=== PATIENT | male | born 1965 | race African-American/Black ===

== ENCOUNTER 2018-10-14 11:50 | Inpatient (IN) | payer OTHER, SELFPAY ==
[2018-10-14] MEDS ORDERED: HYDROmorphone 0.5 MG/0.5 ML SYRINGE ONE (12:07)
[2018-10-14] MEDS ORDERED: Adacel (T-DAP) 0.5 ML SYRINGE ONE (12:07)
[2018-10-14] MEDS ORDERED: PROPOFOL 20 ML ONE (12:30)
--- NOTE | 2018-10-14 13:01 | RAD ---
EXAM: XR Ankle Rt 2 View PROVIDED CLINICAL HISTORY: Open dislocation post fall. COMPARISON: None FINDINGS: There is dislocation of the hindfoot. The calcaneus is dislocated with respect to the talus with medi al deviation and rotation of the calcaneus and foot. There is also dislocation involving the talonavicular joint. The ankle mortise is congruent. No obvious fracture is seen. There is subcutaneo us emphysema about the dislocation. IMPRESSION: Dislocation of the hindfoot as described above. No obvious fractures is appreciated on the provided i mages due to limited evaluation secondary to dislocation.
[2018-10-14] MEDS ORDERED: ePHEDrine 50 MG/ML VIAL ONE (13:14)
[2018-10-14] MEDS ORDERED: Succinylcholine Chloride 20 MG/ML 10 ml SYRINGE FS ONE (13:14)
[2018-10-14] MEDS ORDERED: PROPOFOL 200 MG/20 ML VIAL ONE (13:14)
[2018-10-14] MEDS ORDERED: Lidocaine 1% PF 5 ML VIAL ONE (13:14)
--- NOTE | 2018-10-14 13:30 | HP ---
ATTENDING SURGEON: Dr. Qureshi. CONSULTATIONS: Orthopedics, Dr. De Jesus. 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 The patient had immediate pain and deformity noted. He was brought to the emergency department by ground EMS, where he underwent evaluation and examination, and was noted to have an open right ankle fracture dislocation. The patient underwent conscious sedation and closed reduction in the emergency department by Dr. De Jesus, and is scheduled to go to the operating room for definitive treatment. The patient also received tetanus and 2 g of Ancef, and we were asked to admit the patient. The patient denied any loss of consciousness or syncopal-type symptoms. ALLERGIES: NONE. CURRENT MEDICATIONS: None. PAST MEDICAL HISTORY: None. PAST SURGICAL HISTORY: Right knee arthroscopy. SOCIAL HISTORY: The patient drinks 2 to 3 times per week. Denies drug or tobacco use. 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 REVIEW OF SYSTEMS: A 10-point review of systems is negative as otherwise stated. PHYSICAL EXAMINATION: VITAL SIGNS: Blood pressure 163/93, heart rate 73, respirations 18, oxygen saturation 99% on room air, and temperature is 98.1. GENERAL: The patient is resting comfortably in bed. He is awake, alert, and oriented x3. [place] Coma Scale is 15. HEENT: Normocephalic, atraumatic. Eyes, extraocular motion intact. PERRLA bilaterally. Ears are atraumatic without discharge. Nose is atraumatic without discharge. Oropharynx is clear. NECK: Nontender. Trachea is midline. No JVD. CHEST: Clear to auscultation with good inspiratory and expiratory effort. HEART: Regular rate and rhythm. ABDOMEN: Soft, flat, nontender with active bowel sounds. PELVIS: Stable. EXTREMITIES: Right lower extremity has an obvious open fracture dislocation, that is about to be reduced by Dr. De Jesus. Otherwise, the extremities are neurovascularly intact x4. BACK: Atraumatic and nontender. LABORATORY DATA: Labs are pending. RADIOGRAPHS: Views of the right ankle showed dislocation of the hindfoot with no appreciated fractures on the limited films due to the extreme rotation of the ankle joint itself. ASSESSMENT: 1. Status post fall from approximately 5 feet. 2. Open right ankle fracture dislocation. 3. Acute pain secondary to above. PLAN: Plan will be to undergo conscious sedation closed reduction and splinting. After the reduction, the patient is planned to go to CT to evaluate his foot and ankle. Then, hopefully to day stay in preparation for his surgery. Otherwise, he will go to the surgical floor. Postoperatively, we will do pain control, pulmonary toilet, gastritis and mechanical VTE prophylaxis in addition to his pain control. We will have Physical Therapy work with him as soon as feasible. The evaluation, examination, laboratory, and radiographic findings will be discussed with Dr. Qureshi, after this dictation. Job ID: [id number]
--- NOTE | 2018-10-14 13:45 | CT ---
EXAM: CT Lower Ext Rt WO Con PROVIDED CLINICAL HISTORY: Post reduction of dislocation of the hindfoot. COMPARISON: Views right ankle on 10/14/2018. FINDINGS: There is been interval reduction in the previously noted dislocation involving the hindfoot. No dislo cation is seen on this exam. There are several tiny fracture fragments related to fracture involving the medial aspect posterior process of the talus. There are also small fracture fragments a t the inferior and lateral aspect of the anterior process of the talus. These tiny fracture fragments are noted to arise from the talus.. There is a slightly avulsion fracture involving the base of the fifth metatarsal. No additional fracture is seen. There is no evidence of a dislocation on this examination. Extensive subcutaneous emphysema is seen about the hindfoot with evidence of laceration at the latera l aspect of the hindfoot. Subcutaneous edema is seen about the hindfoot. No obvious joint effusion is seen. IMPRESSION: 1. Interval reduction of previously noted dislocation about the hindfoot. 2. Avulsion fracture fragments adjacent to the anterior process as well as posterior process of the t alus. 3. Slightly avulsion fracture at the base of the fifth metatarsal. 4. Extensive subcutaneous emphysema with laceration lateral aspect of the hindfoot.
[2018-10-14 13:50] LABS: #Eosinphils 0.1 thou/uL (0.0-0.7); #Lymphocytes 1.9 thou/uL (1.20-3.40); #Monocytes 0.6 thou/uL (0.11-0.59); #Neutrophils 8.6 thou/uL (1.40-6.50); %Basophils 0.3 % (0.0-1.0); %Eosinophils 0.9 % (0.0-10.0); %Monocytes 5.4 % (0.0-10.0); %Neutrophils 76.4 % (42.0-75.0); Hemoglobin 14.7 g/dL (14.0-18.0); Mean Corpuscular HGB CONC 32.9 g/dL (32.0-36.0); Mean Corpuscular Hemoglobin 26.4 pg (27.0-31.0); Mean Corpuscular Volume 80.4 fL (78.0-98.0); Mean Platelet Volume 9.1 fL (7.4-10.4); Platelet Count 255 thou/uL (130-400); Red Blood Cell (RBC) Count 5.55 mill/uL (4.70-6.10); White Blood Cell (WBC) Count 11.2 thou/uL (4.8-10.8)
[2018-10-14 14:02] LABS: ALT (SGPT) 24 U/L (8-55); AST (SGOT) 23 U/L (5-34); Albumin 4.3 g/dL (3.5-5.0); Alkaline Phosphatase 71 U/L (40-150); Anion Gap 12 mmol/L (10-20); BUN (Urea Nitrogen) 10 mg/dL (8.4-25.7); Bilirubin, Total 0.8 mg/dL (0.2-1.2); Calc. Creatinine Clearance 0 mL/min (70-130); Calcium 9.3 mg/dL (7.8-10.44); Carbon Dioxide 24 mmol/L (22-29); Chloride 107 mmol/L (98-107); Estimated GFR-MDRD Greater than 90; Globulin 3.3 g/dL (2.4-3.5); Glucose 122 mg/dL (70-105); Potassium 3.7 mmol/L (3.5-5.1); Protein, Total 7.6 g/dL (6.0-8.3); Sodium 139 mmol/L (136-145)
[2018-10-14] MEDS ORDERED: Ketorolac Tromethamine 30 MG/ML VIAL ONE ×2 (14:19→22:47)
[2018-10-14] MEDS ORDERED: Fentanyl 100 MCG/2 ML VIAL ONE ×6 (14:19→22:52)
[2018-10-14] MEDS ORDERED: Famotidine/PF 20 mg/2ml Vial ONE ×3 (14:19→20:59)
[2018-10-14] MEDS ORDERED: Dextrose 50% Abboject 50 ML SYRINGE SLOW IVP PRN (22:39)
[2018-10-14] MEDS ORDERED: Cyclobenzaprine 10 MG TAB PO PRN (22:39)
[2018-10-14] MEDS ORDERED: Ondansetron ODT 4 MG TAB PO PRN (22:39)
[2018-10-14] MEDS ORDERED: Morphine 4 MG/ML VIAL SLOW IVP PRN (22:39)
[2018-10-14] MEDS ORDERED: Promethazine HCl 25 MG/ML VIAL IM PRN ×3 (22:39→22:49)
[2018-10-14] MEDS ORDERED: Ondansetron PF 4 MG/2 ML Vial IVP PRN (22:39)
[2018-10-14] MEDS ORDERED: Morphine 2 MG/ML SYRINGE SLOW IVP PRN (22:39)
[2018-10-14] MEDS ORDERED: Dextrose 5% in Water 1,000 ML IV PRN (22:39)
[2018-10-14] MEDS ORDERED: Famotidine 20 MG TAB PO SCH (22:45)
[2018-10-14] MEDS ORDERED: Ondansetron PF 4 MG/2 ML Vial ONE (22:47)
[2018-10-14] MEDS ORDERED: Ketorolac Tromethamine 30 MG/ML VIAL IVP PRN (22:48)
[2018-10-14] MEDS ORDERED: Ondansetron HCl/PF 4 MG/2 ML Vial IVP PRN (22:49)
[2018-10-14] MEDS ORDERED: Promethazine HCl 25 MG/ML VIAL SLOW IVP PRN (22:49)
--- NOTE | 2018-10-14 23:27 | CON ---
DATE OF CONSULTATION: 10/14/2018 CHIEF COMPLAINT: Right foot pain. 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 He was coming out of an attic when he fell onto his right foot sustaining an open injury to his ankle. The patient was called, had severe pain, on admission was called by the ER for closed reduction. PAST MEDICAL HISTORY: None. PAST SURGICAL HISTORY: Right knee arthroscopy and I and D of an abscess of his right face, not otherwise specified. ALLERGIES: NO KNOWN DRUG ALLERGIES. MEDICATIONS: None. SOCIAL HISTORY: Occasional alcohol. Works in [employer]. Denies illicit drug use or tobacco. REVIEW OF SYSTEMS: Noncontributory. PHYSICAL EXAMINATION: VITAL SIGNS: The patient's vitals blood pressure 179/107, pulse 68, respiratory rate 20, temperature of 98.1, and 100% on room air. GENERAL: Alert and oriented male in no acute distress. EXTREMITIES: Right lower extremity has a laceration over the dorsum of the patient's foot. On first visualization, you can appreciate the patient's talar head and neck. Cartilage without any obvious fracture planes poking through an incision, laceration 4.5 to 5 cm long. The patient had brisk cap refill and what appeared to be palpable pulses. The patient underwent a closed reduction and was splinted. He had brisk cap refill. He has sensation intact L4 through S1. He is able to flex and extend all his toes. LABORATORY DATA: The patient's H and H of 14 and 44, creatinine 0.96. RADIOGRAPHIC DATA: X-ray showed a subtalar dislocation. CT scan was performed after the reduction showing some avulsion fractures in the anterior facet of the calcaneal and talar articulation as well as the posterior tubercle of the patient's talus. There were just small avulsion fractures as well as a 5th metatarsal base avulsion fracture. IMPRESSION: Open subtalar dislocation with avulsion fractures of anterior facet as well as the posterior tubercle as well as a 5th metatarsal base fracture. ASSESSMENT AND PLAN: I close reduced the patient's ankle in the ER pre CT scan. The patient will be taken to the OR later, he is currently n.p.o., received Ancef already, he will undergo an I and D of his open subtalar dislocation, trying to move where fragments can be visualized. We will wash out the foot and then close the wound, place the patient in a splint, and he will be sent home. I discussed with the patient risks and benefits, pain, scar, bleeding, infection, damage to vital structures, arthritis long-term, need for further surgeries, avascular necrosis, missed fracture. He understands the risks and benefits, elected to proceed. Job ID: [id number]
[2018-10-15] MEDS: Acetaminophen 1,000 MG in Premix Bag 1 BAG IVPB SCH ×2 (00:32→06:00)
[2018-10-15] MEDS: Ketorolac Tromethamine 30 MG/ML VIAL IVP SCH ×2 (00:33→06:00)
[2018-10-15] MEDS: Sodium Chloride 0.9% 1,000 ML IV SCH ×3 (00:37→07:34)
[2018-10-15 02:33] VITALS: BMI 35.9
[2018-10-15] MEDS ORDERED: CEFAZOLIN 2 GM in Premix Bag 1 BAG IVPB SCH (06:00)
[2018-10-15 06:53] LABS: #Eosinphils 0.1 thou/uL (0.0-0.7); #Lymphocytes 1.7 thou/uL (1.20-3.40); #Monocytes 0.8 thou/uL (0.11-0.59); #Neutrophils 6.5 thou/uL (1.40-6.50); %Basophils 0.2 % (0.0-1.0); %Eosinophils 0.6 % (0.0-10.0); %Lymphocytes 19.1 % (21.0-51.0); %Monocytes 8.6 % (0.0-10.0); %Neutrophils 71.5 % (42.0-75.0); Hemoglobin 12.3 g/dL (14.0-18.0); Mean Corpuscular HGB CONC 33.6 g/dL (32.0-36.0); Mean Corpuscular Volume 80.4 fL (78.0-98.0); Mean Platelet Volume 8.4 fL (7.4-10.4); Platelet Count 212 thou/uL (130-400); RBC Distribution Width 12.9 % (11.5-14.5); Red Blood Cell (RBC) Count 4.55 mill/uL (4.70-6.10); White Blood Cell (WBC) Count 9.1 thou/uL (4.8-10.8)
[2018-10-15 07:06] LABS: Anion Gap 10 mmol/L (10-20); BUN (Urea Nitrogen) 8 mg/dL (8.4-25.7); Calc. Creatinine Clearance 167 mL/min (70-130); Calcium 8.6 mg/dL (7.8-10.44); Carbon Dioxide 24 mmol/L (22-29); Chloride 108 mmol/L (98-107); Estimated GFR-MDRD Greater than 90; Glucose 118 mg/dL (70-105); Potassium 4.2 mmol/L (3.5-5.1); Sodium 138 mmol/L (136-145)
[2018-10-15] MEDS ORDERED: Enoxaparin Sodium 40 MG/0.4 ML SYRINGE SC SCH (09:00)
[2018-10-15] MEDS ORDERED: Famotidine 20 MG TAB PO SCH (09:00)
--- NOTE | 2018-10-15 09:09 | RAD ---
Intraoperative fluoroscopic imaging of right foot CLINICAL HISTORY: ORIF FINDINGS: Magnified fluoroscopic views of the right foot are provided for intraoperative purposes. Os seous detail is limited. Fracture fragmentation is seen at the base of the fifth metatarsal. IMPRESSION: Intraoperative fluoroscopic imaging of right foot for procedural purposes.
[2018-10-15 11:35] VITALS: BP 148/69; TEMP 98.1
--- NOTE | 2018-10-15 23:22 | DIS ---
DATE OF ADMISSION: 10/14/2018 DATE OF DISCHARGE: 10/15/2018 DISCHARGING PHYSICIAN: Dr. Qureshi. CONSULTS: Orthopedic surgery, Dr. De Jesus. PROCEDURES: 1. On 10/14/2018; ankle x-ray, right, impression: Dislocation of the hindfoot. The calcaneus is dislocated with respect to the talus with medial deviation and rotation of the calcaneus hindfoot. There is also dislocation involving the talonavicular joint. 2. Lower extremity CT, right, impression: Interval reduction of previously- noted dislocation about the hindfoot. Avulsion fracture fragment adjacent to the anterior process as well as posterior processes of the talus. Slightly avulsion fracture of the base of the fifth metatarsal. Extensive subcutaneous emphysema with laceration, lateral aspect of the hindfoot. 3. On 10/14, operative procedure by Dr. De Jesus, left lower extremity wound. PRIMARY DIAGNOSIS: Open right ankle fracture dislocation, status post fall. SECONDARY DIAGNOSIS: Acute traumatic pain. DISCHARGE MEDICATIONS: Hydrocodone 10-325 one to two tablets p.o. q.4 hours as needed for pain. DISCONTINUED MEDICATIONS: None. 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 The patient had immediate pain and deformity and was brought to the emergency room by EMS. The patient was found to have open right ankle fracture dislocation. The patient underwent conscious sedation for closed reduction in the emergency room by Dr. De Jesus. The patient then was taken later onto the operating room for wound washout and closure. The patient was given tetanus and Ancef 2 g in the emergency room. There were no other obvious injuries assisting with the fall. There was no loss of consciousness or syncopal type symptoms prior to falling. The patient had no adverse events during his hospital course. The patient was able to ambulate with physical therapy. On the day of discharge, the patient was examined with Dr. Qureshi. The patient's exam was unremarkable including cardiopulmonary and GI exam. The patient was deemed stable for discharge home. This is just a summary of the hospital admission. DISPOSITION: Stable. DISCHARGE INSTRUCTIONS: 1. Location: Home. 2. Diet: Regular diet. 3. Activity: Orthopedic limitations. Nonweightbearing to right lower extremity. The patient to use crutches for ambulation. FOLLOWUP: Follow up as directed with Dr. De Jesus. Call for appointment in 14 days. Job ID: [id number] [facility]
--- NOTE | 2018-10-16 12:32 | OP ---
DATE OF PROCEDURE: 10/14/2018 PREOPERATIVE DIAGNOSIS: Right subtalar dislocation, open. POSTOPERATIVE DIAGNOSIS: Right subtalar dislocation, open. PROCEDURE PERFORMED: Closed reduction, short-leg splint. ANESTHESIA: ER physician. The patient had received propofol. DESCRIPTION OF PROCEDURE: After time-out had been performed, I discussed with the patient the risks and benefits of procedure, the procedure being closed reduction for pain relief and further evaluation of his injuries. He understood the risks and benefits and elected to proceed. After receiving propofol, the patient's knee was flexed. We had washed the wound with a liter and a half of saline with Betadine to clean out the wounds. I saw no fracture fragments within the talar head. We then pulled and reduced the subtalar dislocation, placed Betadine-soaked sponges, and splinted the patient and used the L and U splint. The patient was sent for a CT scan postprocedure. Job ID: [id number]
--- NOTE | 2018-10-16 14:51 | OP ---
DATE OF PROCEDURE: 10/14/2018 PREOPERATIVE DIAGNOSES: 1. Open subtalar dislocation/fracture. 2. Fifth metatarsal base fracture. 3. A 4.5-cm laceration with ligamentous and muscular injury. POSTOPERATIVE DIAGNOSES: 1. Open subtalar dislocation. 2. Combination of cartilage and bone fragments from the subtalar calcaneal articulation. 3. Fifth metatarsal base fracture, closed. 4. Interosseous talonavicular ligament, dorsal talonavicular ligament, anterior talofibular ligament injuries, inferior extensor retinaculum, extensor digitorum brevis injuries, a 4.5-cm laceration. PROCEDURES PERFORMED: 1. Open reduction, subtalar joint. 2. I and D, open fracture. 3. Multiple-layered closure of the ATFL, dorsal talonavicular ligament, anterior talofibular ligament, extensor digitorum brevis and inferior extensor retinaculum and then closure of a 4.5-cm traumatic laceration, short-leg splint. 4. Nonoperative management of 5th metatarsal base fracture RAILROAD BRAKE REPAIRER: Diallo Houston PA-C. ANESTHESIOLOGIST: Dr. Dickson Banks. ANESTHESIA: The patient received general intubation. ESTIMATED BLOOD LOSS: 50 mL. TOURNIQUET TIME: None. IMPLANTS: None. ANTIBIOTICS: Ancef. COMPLICATIONS: None. INDICATIONS FOR PROCEDURE: Mr. 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 The patient was closed reduced in the ER. CT scan was sent. He had avulsion fractures of his small fractures on fragment of the talonavicular, talocalcaneal articulation anteriorly as well as posterior tubercles avulsion fractures. He also had a fifth metatarsal fracture on CT scan, but otherwise no other fractures were noted. The patient had sensory and motor intact. I discussed with the patient after closed reduction, taken to the OR for I and D, washed out and indicated procedures. The patient understood these risks and benefits and elected to proceed. I discussed the risks and benefits of the surgery to include, arthritis, stiffness, damage to vital structures, nerves, arteries, tendons, need for further surgeries, potential risk for fusion, blood clots, loss of life or limb. I discussed with the patient that he needed to be splint postprocedure and we transitioned him to walking in 4 to 6 weeks. I discussed all risks and benefits of the procedure and elected to proceed. DESCRIPTION OF PROCEDURE: Time-out was performed designating the patient's right lower extremity as the operative site based on site, consents and marking. After time-out, the patient's right lower extremity was prepped and draped with Betadine. There was a 4.5-cm laceration which was vertical just anterior to the patient's fibula over the sinus tarsi. I used two more centimeters obliquely and back towards the anterior aspect of the fibula and distally, along the skin fold plantar pad to help to expose the patient's sinus tarsi better. There was a branch of superficial peroneal nerve, which was protected, came down into essentially looking directly onto the patient's talus with fat pad exposed the extensor digitorum brevis, injured inferior retinaculum, injured remnant of ATFL inferior to talonavicular ligament. We subluxed the joint to expose the head of the talus. There were 3 small articular size bony fragments, which were washed out of the joint, which were not repairable. They were less than 3 mm in overall length in all planes. We washed the joint out to ensure that there was no tendons that were tethered within the joint. We washed with 3 L of fluid through completion of this. We did reduce the fracture looking in AP and lateral radiographs on fluoroscopy to ensure that was reduced. I then sequentially started closing the layers superiorly of the dorsal talonavicular ligament when I could see the remnant of the interosseous talocalcaneal ligament , ATFL. I closed the patient's extensor digitorum brevis as was the inferior extensor retinaculum to help with closure along the lateral aspect, essentially creating a scar plane. I then continue to wash and closed the 4.5 cm laceration. Patient was then placed in a short-leg splint. The patient will be admitted overnight, received 24 hours of antibiotics, received Ancef. Job ID: [id number] [facility]
== END 2018-10-15 11:45 | disposition home or self-care (01) | DRG 504 ==
LOC: ERS 11:50 → SURG B 23:20
PROVIDERS: ADMIT Surgery; ATTEND Surgery
PROC: 0QSLXZZ Reposition Right Tarsal, External Approach (ICD-10-PCS; principal; 2018-10-14)
PROC: 0QSL04Z Reposition Right Tarsal with Internal Fixation Device, Open Approach (ICD-10-PCS; 2018-10-14)
DX: S92.191 Other fracture of right talus (principal); S82.891B Other fracture of right lower leg, initial encounter for open fracture type I or II; W19.XXXA Unspecified fall, initial encounter; S93.04XA Dislocation of right ankle joint, initial encounter; S92.351A Displaced fracture of fifth metatarsal bone, right foot, initial encounter for closed fracture; S93.401A Sprain of unspecified ligament of right ankle, initial encounter
CPT/HCPCS: 36415; 76000; 80048; 80053; 85025; 90715; 93005; G0390; J0131; J0690; J1170; J1650; J1885; J2001; J2270; J2405; J2704; J3010; J3490; S0028